=== PATIENT | female | born 1985 | race Hispanic/Latino ===

== ENCOUNTER 2016-11-24 06:59 | Inpatient (IN) | payer OTHER ==
[2016-11-24] MEDS: Lactated Ringer's 1,000 ML IV SCH ×4 (08:25→17:30)
[2016-11-24 08:46] VITALS: PULSE 80; RESP 18; O2SAT 100
[2016-11-24] MEDS ORDERED: Lidocaine 1% Inj (20ml) ONE (09:08)
[2016-11-24 09:19] LABS: BASO # 0.1 K/uL (0.0-0.2); BASO % 0.5 % (0.0-2.0); EOS # 0.1 K/uL (0.0-0.7); EOS % 0.7 % (0.0-4.0); HEMATOCRIT 37.1 % (34.0-47.0); LYMPH # 2.1 K/uL (1.0-4.3); LYMPH % 18.7 % (20.0-40.0); MEAN CELL VOLUME 86.4 fl (81.0-99.0); MEAN CORPUSCULAR HEMOGLOBIN 28.1 pg (27.0-31.0); MEAN CORPUSCULAR HGB CONC 32.5 g/dL (33.0-37.0); MEAN PLATELET VOLUME 10.5 fl (7.2-11.7); MONO # 0.8 K/uL (0.0-0.8); MONO % 6.8 % (0.0-10.0); NEUT # 8.3 K/uL (1.8-7.0); NEUT % 73.3 % (50.0-75.0); RED CELL DISTRIBUTION WIDTH 13.8 % (11.5-14.5); WHITE BLOOD COUNT 11.3 K/uL (4.8-10.8)
[2016-11-24] MEDS ORDERED: Fentanyl/Bupivacaine HCl 250 ML EPI ONE (10:04)
[2016-11-24] MEDS ORDERED: Oxytocin 30 units/LR 500ML 500 ML IV SCH (10:30)
[2016-11-24] MEDS ORDERED: Oxytocin 30 units/LR 500ML 500 ML IV ONE (22:36)
[2016-11-24] MEDS ORDERED: Oxycodone/Acetaminophen 5/325 mg Tab PO PRN (23:01)
--- NOTE | 2016-11-24 23:24 | OBDS ---
MATERNAL INFORMATION Provider Comments: Delivered a live baby girl at 10:24 PM via vacuum extraction. Indication for vacu um was maternal exhaustion position of the baby was CAROLINE and +3 station. Prior to application of the v acuum informed consent was obtained we discussed risks benefits and alternatives to the procedure and the fascia was given the opportunity ask questions. The vacuum was applied using maternal expulsive forces the infant was delivered. The nose and mouth were suctioned with DeLee suction trap the infant was placed on the maternal chest the cord was clamped and cut. 3 vessels were noted 3 vessels were n oted. The placenta was delivered manually a midline episiotomy was repaired with 2-0 repeat the mothe r tolerated the procedure well the infant went to the nursery with Apgars of 9 and 9 weighing 8 pound s 8.3 ounces. PH was in attendance due to operative vaginal delivery LABOR SUMMARY EDC: 11/19/2016 00:00 No. Babies in Womb: 1 Attempted: No Labor Anesthesia: Epidural LABOR INFORMATION Reason for Induction: Not Applicable Onset of Labor: 11/24/2016 05:30 Complete Dilatation: 11/24/2016 15:30 Oxytocin: Augmentation Group B Beta Strep: Negative Antibiotics # of Doses: n/a Antibiotics Time of Last Dose: n/a Steroids Given: None Reason Steroids Not Administered: Not Applicable MEMBRANES Membranes Rupture Method: Artificial Rupture of Membranes: 11/24/2016 09:52 Amniotic Fluid Color: Clear Amniotic Fluid Amount: Moderate Amniotic Fluid Odor: Normal STAGES OF LABOR Stage 1 hrs: 10 Stage 1 min: 0 VAGINAL DELIVERY Episiotomy: Median Laceration Extension: Second Degree Laceration Type: Perineal Laceration Repair: Yes Laceration Repair Note: 2.0 rapide BABY A INFORMATION Born in Route : No : N/A INFORMATION BABY A Gestational Age at Delivery: 40.5 Gestational Status: Post-term IDENTIFICATION/MEDS BABY A ID Band Number: [id number]
[2016-11-25] MEDS ORDERED: AMPicillin 1 GM in Sodium Chloride 0.9% 100 ML IVPB SCH ×2 (01:00→02:00)
[2016-11-25] MEDS ORDERED: Gentamicin 80mg/50ml NS 50 ML IVPB SCH (01:00)
[2016-11-25 01:16] VITALS: BP 108/65; TEMP 98.1
[2016-11-25] MEDS: Lactated Ringer's 1,000 ML IV SCH ×2 (01:17→09:30)
[2016-11-25] MEDS: Oxycodone/Acetaminophen 5/325 mg Tab PO PRN ×4 (04:57→21:06)
--- NOTE | 2016-11-25 07:59 | OBPPN ---
Datetime: 11/25/2016 07:55 PP Pain Prov: Within normal limits PP Abdomen/Uterus Prov: Normal PP Lochia Prov: Normal PP Extremities Prov: Normal PP Progress Prov: Normal PP Impression Prov: Normal progression PP Plan Prov: Continue present management PP Progress Note Prov: PPD 1 s/p VAVD, breast feeding Continue current management Vital Signs Provider PP: Reviewed
[2016-11-25 08:01] LABS: HEMATOCRIT 30.1 % (34.0-47.0); MEAN CELL VOLUME 86.7 fl (81.0-99.0); MEAN CORPUSCULAR HEMOGLOBIN 28.4 pg (27.0-31.0); MEAN CORPUSCULAR HGB CONC 32.7 g/dL (33.0-37.0); RED CELL DISTRIBUTION WIDTH 13.9 % (11.5-14.5); WHITE BLOOD COUNT 20.4 K/uL (4.8-10.8)
--- NOTE | 2016-11-25 11:06 | OBHP ---
Datetime: 11/24/2016 07:50 IP Adm Impression: Term, intrauterine ; No Active Labor IP Adm Impression Other: Latent phase of labor IP Admit Plan: Admit to unit; Initiate labor protocol Admit Comment, IP Provider: IUP at 40+w c/o ctx last night which increased intensity...while in L_D she felt leaking. No VB. +FM PNC: CP Dr Madrid PMH: denies PSH: denies NKA PSoH denies smoking, ETOH, drugs chart rev'd and updated/PNC Dr Madrid A: IUP at 40w early labor SROM P: Admit to L_D Labs observe labor progress Condition, labor,pain management, augmentation methods, delilvry and discussed with pt Abdomen - PN: Normal Back - PN: Normal Lungs - PN: Normal Heart - PN: Normal Thyroid - PN: Normal Neurologic - PN: Normal HEENT - PN: Normal General - PN: Normal FHR - Baseline A Provider: 120 Amniotic Fluid Color, Provider: Clear Membranes, Provider: Ruptured Contraction Comments Provider: occ Comments, ACOG Physical Exam: General - no fatigue HEENT: No [place]; no visual disturbance CV: no CP; no palpitations RESP: No Cough; no SOB GI: No N/V/D : No F/U/D MS: no joint pain Pool Provider: Negative Ferning Provider: Positive IP Hx Assessment: The History has been Reviewed and is Current EGA AdmitDate IP: 40.5 Vital Signs Provider: Reviewed; Within Normal Limits IP Chief Complaint: Uterine contractions; Suspected ruptured membranes NICHD Variability Prov Fetus A: Moderate 6-25bpm NICHD Accel Fetus A IP Provider: 15X15 FHR Category Provider Fetus A: Category I NICHD Decel Fetus A IP Provider: None Dilatation, Provider: 2-3 Effacement, Provider: 50 Station, Provider: -2
[2016-11-25] MEDS: Benzocaine/Menthol SPRAY TOP PRN (16:28)
[2016-11-26] MEDS: Benzocaine/Menthol SPRAY TOP PRN (09:27)
--- NOTE | 2016-11-26 10:55 | OBDCSUM ---
Datetime: 11/26/2016 10:53 Discharged to, Provider: Home Follow up at, Provider: [facility] Disch Instr Activity: Normal activity Disch Instr Diet: Regular Discharge Instructions, Provider: Routine instructions given Discharge Diagnosis, Provider: Term Delivered Follow up in weeks, Provider: 6w Disch Referrals: None Contraception discussed, Prov: Yes Disch Activity Restrictions: No sexual activity; Nothing in vagina - [place], tampons, douche
[2016-11-26] MEDS ORDERED: Hydrocortisone-Pramoxine 1%-1% Foam(10 gm) TOP PRN (11:43)
== END 2016-11-26 15:36 | disposition home or self-care (01) | DRG 775 ==
LOC: H.EROB2 06:59 → H.L&D 08:15 → H.OB/GYN 11-25 01:10
PROVIDERS: ADMIT Obstetrics & Gynecology Gynecology; ATTEND Obstetrics & Gynecology Gynecology
PROC: 10D07Z6 Extraction of Products of Conception, Vacuum, Via Natural or Artificial Opening (ICD-10-PCS; principal; 2016-11-24)
PROC: 0KQM0ZZ Repair Perineum Muscle, Open Approach (ICD-10-PCS; 2016-11-24)
PROC: 0W8NXZZ Division of Female Perineum, External Approach (ICD-10-PCS; 2016-11-24)
PROC: 4A1HXCZ Monitoring of Products of Conception, Cardiac Rate, External Approach (ICD-10-PCS; 2016-11-24)
PROC: 10907ZC Drainage of Amniotic Fluid, Therapeutic from Products of Conception, Via Natural or Artificial Opening (ICD-10-PCS; 2016-11-24)
DX: O48.0 Post-term pregnancy (principal); O70.1 Second degree perineal laceration during delivery; Z37.0 Single live birth; Z3A.40 40 weeks gestation of pregnancy

== ENCOUNTER 2017-12-04 23:57 | Day surgery (SDC) | payer OTHER ==
[2017-12-05] MEDS ORDERED: Morphine 4 MG/ML VIAL IVP STA (00:40)
[2017-12-05] MEDS ORDERED: Morphine 4 MG/ML VIAL ONE ×2 (00:49→15:57)
[2017-12-05 01:30] LABS: BASO # 0.1 K/uL (0.0-0.2); BASO % 0.7 % (0.0-2.0); EOS # 0.2 K/uL (0.0-0.7); EOS % 1.3 % (0.0-4.0); HEMOGLOBIN 14.3 g/dL (12.0-16.0); LYMPH % 21.2 % (20.0-40.0); MEAN CELL VOLUME 85.9 fl (81.0-99.0); MEAN CORPUSCULAR HEMOGLOBIN 28.7 pg (27.0-31.0); MEAN CORPUSCULAR HGB CONC 33.4 g/dL (33.0-37.0); MEAN PLATELET VOLUME 10.1 fl (7.2-11.7); MONO # 0.7 K/uL (0.0-0.8); MONO % 5.1 % (0.0-10.0); NEUT # 10.2 K/uL (1.8-7.0); NEUT % 71.7 % (50.0-75.0); RBC 4.99 Mil/uL (3.80-5.20); RED CELL DISTRIBUTION WIDTH 13.5 % (11.5-14.5); WHITE BLOOD COUNT 14.2 K/uL (4.8-10.8)
[2017-12-05 01:39] LABS: ALB/GLOB RATIO 1.4 (1.0-2.1); ALBUMIN 4.4 g/dL (3.5-5.0); ALT/SGPT 67 U/L (9-52); AST/SGOT 105 U/L (14-36); BLOOD UREA NITROGEN 21 mg/dl (7-17); CALCIUM 9.9 mg/dL (8.4-10.2); GFR AFRICAN-AMERICAN > 60; GFR NON-AFRICAN AMERICAN > 60; LIPASE 103 U/L (23-300)
--- NOTE | 2017-12-05 02:17 | ED PDOC ---
HPI: Abdomen Time Seen by Provider: 12/05/17 00:11 Chief Complaint (Nursing): Abdominal Pain Chief Complaint (Provider): Abdominal Pain History Per: Patient History/Exam Limitations: no limitations Onset/Duration Of Symptoms: Mins (x30 minutes HEAD GROWER) Location Of Pain/Discomfort: Epigastric Associated Symptoms: denies: Fever, Nausea, Vomiting, Diarrhea, Urinary Symptoms Additional Complaint(s): Patient complains of sudden onset epigastric abdominal pain x30 minutes HEAD GROWER described as contraction-like and has no past medical history. Reports pain radiates to the bilateral upper quadrants of the abdomen. Denies experiencing this pain before. Otherwise: (-) vomiting, (-) diarrhea, (-) nausea, (-) fever, (-) melena, (-) hematochezia, (-) urinary symptoms. Has no history of prior abdominal surgery. Patient notes upon ED arrival, pain has improved but is still present. PCP: None Past Medical History Reviewed: Historical Data, Nursing Documentation, Vital Signs Vital Signs: Last Vital Signs Temp 97.5 F L 12/05/17 00:02 Pulse 106 H 12/05/17 00:02 Resp 18 12/05/17 00:02 BP 136/82 12/05/17 00:51 Pulse Ox 100 12/05/17 04:42 - Medical History PMH: No Chronic Diseases - Surgical History Surgical History: No Surg Hx - Family History Family History: States: No Known Family Hx - Living Arrangements Living Arrangements: With Family - Allergies Allergies/Adverse Reactions: Allergies Allergy/AdvReac Type Severity Reaction Status Date / Time No Known Allergies Allergy Verified 11/24/16 07:40 Review of Systems ROS Statement: Except As Marked, All Systems Reviewed And Found Negative Constitutional: Negative for: Fever Gastrointestinal: Positive for: Abdominal Pain. Negative for: Nausea, Vomiting , Diarrhea Genitourinary Female: Negative for: Dysuria, Frequency, Incontinence, Hematuria Physical Exam - Reviewed Nursing Documentation Reviewed: Yes Vital Signs Reviewed: Yes - Physical Exam Comments: GENERAL APPEARANCE: Patient is awake, alert, oriented x 3, in moderate painful distress SKIN: Warm, dry; (-) cyanosis. EYES: (-) conjunctival pallor, (-) scleral icterus. ENMT: Mucous membranes moist. NECK: (-) tenderness, (-) stiffness, (-) lymphadenopathy. CHEST AND RESPIRATORY: (-) rales, (-) rhonchi, (-) wheezes; breath sounds equal bilaterally. HEART AND CARDIOVASCULAR: (-) irregularity; (-) murmur, (-) gallop. ABDOMEN AND GI: (-) distention. Bowel sounds active; tenderness in epigastrum and RUQ. (-) guarding, (-) rebound, (-) palpable masses, (-) CVA tenderness. (+ ) Molina's sign EXTREMITIES: (-) deformity, (-) edema, (+) distal pulses. NEURO AND PSYCH: Mental status as above; (-) focal findings. - Laboratory Results Result Diagrams: 12/05/17 01:20 12/05/17 01:20 - ECG O2 Sat by Pulse Oximetry: 100 (RA) Pulse Ox Interpretation: Normal Medical Decision Making Medical Decision Makin Initial orders: * Labs * Lipase * UPreg * Morphine 4mg IVP * Pepcid 20mg IVP * Zofran 4mg PO * UA * US ABD LIMITED US abdomen : FINDINGS: Liver: Normal. No mass. No intrahepatic bile duct dilation. Gallbladder: Cholelithiasis is present. A positive sonographic Molina sign is reported. Common bile duct: Unremarkable as visualized. No stones. No dilation. Pancreas: Unremarkable as visualized. Right kidney: The RIGHT kidney measures 10.7 x 6.1 x 3.8 cm. No stones. No hydronephrosis. Aorta: Visualized aorta is unremarkable. Inferior vena cava: The visualized IVC is unremarkable. IMPRESSION: Acute cholecystitis as above. Dictated and Authenticated by: Raul Hussein MD 12/05/2017 1:18 AM Eastern Time ([place] & [place]) Labs reviewed : wbc 14.2, ast 105, alt 67, t bili 0.8, lipase 103 0240 On re-evaluation, patient reports improvement of pain. On exam, patient remains AAOx3, in no acute distress. Abdomen soft, +mild RUQ and epigastric tenderness, no guarding, no rebound. Diagnostic results d/w the patient in great detail. Diagnosis of acute cholecystitis d/w the patient. VBG, blood cx and zosyn IV ordered. Case d/w operating room surgical technologist, Dr. Tay Bartholomew, agree with plan for inpatient admission. Request admission under the hospitalist. Dr. Carmona was notified by operating room surgical technologist regarding admission. Based on history, exam and diagnostic results, plan will be for inpatient admission. Patient states she fully agrees with and understands further plan of care. I have given the patient opportunity to ask any additional questions. Scribe Attestation: Documented by Yanelis Godinez acting as a scribe for Leyla Castle PA-C. Scribe Attestation: All medical record entries made by the Scribe were at my direction and personally dictated by me. I have reviewed the chart and agree that the record accurately reflects my personal performance of the history, physical exam, medical decision making, and the department course for this patient. I have also personally directed, reviewed, and agree with the discharge instructions and disposition. Disposition - Clinical Impression Clinical Impression: Abdominal pain, Acute cholecystitis - Patient ED Disposition Is Patient to be Admitted: Yes Counseled Patient/Family Regarding: Studies Performed, Diagnosis - Disposition Disposition Time: 02:15 Condition: STABLE Forms: [facility] (Romanian)
[2017-12-05] MEDS ORDERED: Piperacillin/Tazobact 3.375 GM in Sodium Chloride 0.9% 100 ML IVPB STA (02:40)
[2017-12-05] MEDS ORDERED: Piperacillin/Tazobact 3.375 gm Inj IVPB ONE (03:10)
[2017-12-05 03:19] LABS: VENOUS BLOOD GAS BASE EXCESS -2.4 mmol/L (0.0-2.0); VENOUS BLOOD GAS PCO2 42 mmHg (40-60); VENOUS BLOOD GAS PO2 69 mm/Hg (30-55); VENOUS BLOOD PH 7.35 (7.32-7.43)
[2017-12-05 03:44] LABS: SQUAMOUS EPITHIAL 1 /hpf (0-5); URINE BILIRUBIN NEGATIVE (NEGATIVE); URINE BLOOD NEGATIVE (NEGATIVE); URINE CLARITY CLEAR (Clear); URINE COLOR YELLOW (YELLOW); URINE GLUCOSE (UA) NEG (Normal); URINE LEUKOCYTE ESTERASE SMALL Leu/uL (Negative); URINE PROTEIN NEGATIVE (NEGATIVE); URINE UROBILINOGEN 0.2-1.0 mg/dL (0.2-1.0)
--- NOTE | 2017-12-05 04:26 | CP.PCM.HP ---
History of Present Illness - History of Present Illness History of Present Illness: PMD: none Chief Complaint: Abdominal Pain The patient was seen and examined in the ED HPI: 32 years old female with no significant medical hx comes with 30mins of sudden unset of a sharp, contraction - epigastric pain which was continuous and radiating across the upper abdomen, not relieved with her home medications. No fever, nausea, vomits, diarrhea, SOB nor chest pains. No dysuria nor urinary frequency. PMH: Denies PSH: Denies SH: No illegal drug use; No Alcohol; Never Smoked; live with family FH: State: No known family hjx Allergies: NKDA Medication: No Medication use Present on Admission - Present on Admission Any Indicators Present on Admission: No History of DVT/PE: No History of Uncontrolled Diabetes: No Urinary Catheter: No Decubitus Ulcer Present: No Review of Systems - Constitutional Constitutional: Headache. absent: Anorexia, Chills, Fever - EENT Eyes: Requires Corrective Lenses. absent: Diplopia, Floaters, Sees Flashes Ears: absent: Decreased Hearing, Ear Discharge, Ear Pain, Tinnitus Nose/Mouth/Throat: absent: Epistaxis, Nasal Congestion, Nasal Discharge, Sinus Pain, Sinus Pressure - Cardiovascular Cardiovascular: absent: Chest Pain, Diaphoresis, Dyspnea, Edema - Respiratory Respiratory: absent: Cough, Dyspnea, Wheezing, Stridor - Gastrointestinal Gastrointestinal: Abdominal Pain. absent: Constipation, Diarrhea, Dysphagia, Nausea, Vomiting - Genitourinary Genitourinary: absent: Dysuria, Flank Pain, Hematuria, Voiding Freq/Small Amts - Musculoskeletal Musculoskeletal: absent: Arthralgias, Muscle Weakness, Neck Pain - Integumentary Integumentary: absent: Pruritus, Rash, Skin Ulcer, Sores, Striae, Swelling - Neurological Neurological: absent: Confusion, Dizziness, Focal Weakness, Weakness - Psychiatric Psychiatric: absent: Anxiety, Depression, Panic Attacks - Endocrine Endocrine: absent: Palpitations, Polydipsia, Polyphagia, Polyuria - Hematologic/Lymphatic Hematologic: absent: Easy Bleeding, Easy Bruising Past Patient History - Past Medical History & Family History Past Medical History?: No - Past Social History Smoking Status: Never Smoked Chewing Tobacco Use: No Cigar Use: No Alcohol: None Drugs: Denies Home Situation {Lives}: With Family - CARDIAC Hx Cardiac Disorders: No - PULMONARY Hx Respiratory Disorders: No - NEUROLOGICAL Hx Neurological Disorder: No - HEENT Hx HEENT Problems: No - RENAL Hx Chronic Kidney Disease: No - ENDOCRINE/METABOLIC Hx Endocrine Disorders: No - HEMATOLOGICAL/ONCOLOGICAL Hx Blood Disorders: No - INTEGUMENTARY Hx Dermatological Problems: No - MUSCULOSKELETAL/RHEUMATOLOGICAL Hx Musculoskeletal Disorders: No - GASTROINTESTINAL Hx Gastrointestinal Disorders: No - GENITOURINARY/GYNECOLOGICAL Hx Genitourinary Disorders: No - PSYCHIATRIC Hx Psychophysiologic Disorder: No Hx Substance Use: No - SURGICAL HISTORY Hx Surgeries: No - ANESTHESIA Hx Anesthesia: No Meds Allergies/Adverse Reactions: Allergies Allergy/AdvReac Type Severity Reaction Status Date / Time No Known Allergies Allergy Verified 11/24/16 07:40 Physical Exam - Constitutional Appears: No Acute Distress - Head Exam Head Exam: ATRAUMATIC, NORMAL INSPECTION, NORMOCEPHALIC - Eye Exam Eye Exam: EOMI, Normal appearance Pupil Exam: NORMAL ACCOMODATION, PERRL - ENT Exam ENT Exam: Mucous Membranes Moist, Normal Exam, Normal External Ear Exam - Neck Exam Neck exam: Positive for: Full Rom, Normal Inspection. Negative for: Lymphadenopathy, Tenderness - Respiratory Exam Respiratory Exam: Clear to Auscultation Bilateral. absent: Rales, Rhonchi, Wheezes - Cardiovascular Exam Cardiovascular Exam: REGULAR RHYTHM, RRR, +S1, +S2. absent: Gallop, JVD - GI/Abdominal Exam Additional comments: Soft, +ve bowel sounds, moderate tenderness at the RUQ and Epigastrium on palpation, No rebound tenderness, no guarding - Rectal Exam Rectal Exam: Deferred - Extremities Exam Extremities exam: Positive for: full ROM, normal inspection. Negative for: calf tenderness, joint swelling, pedal edema - Back Exam Back exam: NORMAL INSPECTION. absent: CVA tenderness (L), CVA tenderness (R) - Neurological Exam Neurological exam: Alert, CN II-XII Intact, Oriented x3, Reflexes Normal - Psychiatric Exam Psychiatric exam: Normal Affect, Normal Mood - Skin Skin Exam: Dry, Intact, Normal Color, Warm Results - Vital Signs Recent Vital Signs: Last Vital Signs Temp 97.5 F L 12/05/17 00:02 Pulse 106 H 12/05/17 00:02 Resp 18 12/05/17 00:02 BP 136/82 12/05/17 00:51 Pulse Ox 100 12/05/17 03:45 - Labs Result Diagrams: 12/05/17 01:20 12/05/17 01:20 Labs: Laboratory Results - last 24 hr 12/05/17 12/05/17 12/05/17 01:20 01:20 03:15 WBC 14.2 H RBC 4.99 Hgb 14.3 D Hct 42.9 MCV 85.9 MCH 28.7 MCHC 33.4 RDW 13.5 Plt Count 205 MPV 10.1 Neut % (Auto) 71.7 Lymph % (Auto) 21.2 [place] % (Auto) 5.1 Eos % (Auto) 1.3 Baso % (Auto) 0.7 Neut # (Auto) 10.2 H Lymph # (Auto) 3.0 [place] # (Auto) 0.7 Eos # (Auto) 0.2 Baso # (Auto) 0.1 pO2 69 H VBG pH 7.35 VBG pCO2 42 VBG HCO3 22.9 VBG Total CO2 24.5 VBG O2 Sat (Calc) 95.9 H VBG Base Excess -2.4 L VBG Potassium 3.6 Glucose 129 H Lactate 1.1 FiO2 21.0 Sodium 141 136.0 Potassium 3.7 Chloride 101 104.0 Carbon Dioxide 26 Anion Gap 18 BUN 21 H Creatinine 0.9 Est GFR ( Amer) > 60 Est GFR (Non-Af Amer) > 60 Random Glucose 106 H Calcium 9.9 Total Bilirubin 0.8 AST 105 H ALT 67 H Alkaline Phosphatase 76 Total Protein 7.4 Albumin 4.4 Globulin 3.0 Albumin/Globulin Ratio 1.4 Lipase 103 Venous Blood Potassium 3.6 Urine Color Urine Clarity Urine pH Ur Specific [place] Urine Protein Urine Glucose (UA) Urine Ketones Urine Blood Urine Nitrate Urine Bilirubin Urine Urobilinogen Ur Leukocyte Esterase Urine RBC (Auto) Urine Microscopic WBC Ur Squamous Epith Cells 12/05/17 03:20 WBC RBC Hgb Hct MCV MCH MCHC RDW Plt Count MPV Neut % (Auto) Lymph % (Auto) [place] % (Auto) Eos % (Auto) Baso % (Auto) Neut # (Auto) Lymph # (Auto) [place] # (Auto) Eos # (Auto) Baso # (Auto) pO2 VBG pH VBG pCO2 VBG HCO3 VBG Total CO2 VBG O2 Sat (Calc) VBG Base Excess VBG Potassium Glucose Lactate FiO2 Sodium Potassium Chloride Carbon Dioxide Anion Gap BUN Creatinine Est GFR ( Amer) Est GFR (Non-Af Amer) Random Glucose Calcium Total Bilirubin AST ALT Alkaline Phosphatase Total Protein Albumin Globulin Albumin/Globulin Ratio Lipase Venous Blood Potassium Urine Color Yellow Urine Clarity Clear Urine pH 7.0 Ur Specific [place] 1.015 Urine Protein Negative Urine Glucose (UA) Neg Urine Ketones Negative Urine Blood Negative Urine Nitrate Negative Urine Bilirubin Negative Urine Urobilinogen 0.2-1.0 Ur Leukocyte Esterase Small Urine RBC (Auto) 3 Urine Microscopic WBC 6 H Ur Squamous Epith Cells 1 - Imaging and Cardiology US - abdomen Status: Report reviewed by me Additional comment: EXAM: US Abdomen Limited, Right Upper Quadrant EXAM DATE/TIME: Exam ordered 12/05/2017 12:40 AM C FINDINGS: Liver: Normal. No mass. No intrahepatic bile duct dilation. Gallbladder: Cholelithiasis is present. A positive sonographic Molina sign is reported. Common bile duct: Unremarkable as visualized. No stones. No dilation. Pancreas: Unremarkable as visualized. Right kidney: The RIGHT kidney measures 10.7 x 6.1 x 3.8 cm. No stones. No hydronephrosis. Aorta: Visualized aorta is unremarkable. Inferior vena cava: The visualized IVC is unremarkable. IMPRESSION: Acute cholecystitis as above. Assessment & Plan - Assessment and Plan (Free Text) Assessment: #. Acute Cholecystitis with Cholelithiasis #. leukocytosis #. Dehydration Plan: 32 years old female with no significant medical hx comes with 30mins of sudden unset of a sharp, contraction - epigastric pain which was continuous and radiating across the upper abdomen, not relieved with her home medications. No fever, nausea, vomits, diarrhea, SOB nor chest pains. No dysuria nor urinary frequency. #. Acute Cholecystitis with Cholelithiasis - consult Surgery Dr Carmona - NPO - IV Fluids - Zosyn - Pain medication #. leukocytosis caused bythe Cholecystitis - Follow CBC #. Dehydration - IV Fluid - follow Renal labs #. DVT prophylaxis with SCD #. Code Status: Full - Date & Time Date: 12/05/17 Time: 04:25
--- NOTE | 2017-12-05 05:23 | CP.PCM.CON ---
History of Present Illness - History of Present Illness History of Present Illness: SURGERY NOTE FOR DR. LEBRON 32F presents with abdominal pain that started last night. Patient states it started after eating fatty food for the holidays. She states the pain is located in the RUQ/Epigastric region and does not radiate. She has never had this pain before. She denies association with nausea, vomiting, fevers, or chills. Denies change in bowel function. PMH: denies PSH: Tonsillectomy Social: denies tobacco, alcohol, illicit drugs Allergies: NKDA Past Patient History - Past Social History Smoking Status: Never Smoked - PSYCHIATRIC Hx Substance Use: No - SURGICAL HISTORY Hx Surgeries: No - ANESTHESIA Hx Anesthesia: No Meds Allergies/Adverse Reactions: Allergies Allergy/AdvReac Type Severity Reaction Status Date / Time No Known Allergies Allergy Verified 11/24/16 07:40 Physical Exam - Constitutional Appears: Well, Non-toxic, No Acute Distress - ENT Exam ENT Exam: Mucous Membranes Moist - Respiratory Exam Respiratory Exam: Clear to Auscultation Bilateral, NORMAL BREATHING PATTERN - Cardiovascular Exam Cardiovascular Exam: REGULAR RHYTHM, +S1, +S2 - GI/Abdominal Exam GI & Abdominal Exam: Soft, Tenderness (Epigastric and RUQ tenderness). absent: Distended, Firm, Guarding, Rebound, Rigid - Extremities Exam Extremities exam: Negative for: pedal edema, tenderness - Neurological Exam Neurological exam: Alert, Oriented x3 - Psychiatric Exam Psychiatric exam: Normal Affect, Normal Mood - Skin Skin Exam: Dry, Intact, Normal Color, Warm Results - Vital Signs Recent Vital Signs: Last Vital Signs Temp 97.5 F L 12/05/17 00:02 Pulse 106 H 12/05/17 00:02 Resp 18 12/05/17 00:02 BP 136/82 12/05/17 00:51 Pulse Ox 100 12/05/17 04:46 - Labs Result Diagrams: 12/05/17 01:20 12/05/17 01:20 Labs: Laboratory Results - last 24 hr 12/05/17 12/05/17 12/05/17 01:20 01:20 03:15 WBC 14.2 H RBC 4.99 Hgb 14.3 D Hct 42.9 MCV 85.9 MCH 28.7 MCHC 33.4 RDW 13.5 Plt Count 205 MPV 10.1 Neut % (Auto) 71.7 Lymph % (Auto) 21.2 [place] % (Auto) 5.1 Eos % (Auto) 1.3 Baso % (Auto) 0.7 Neut # (Auto) 10.2 H Lymph # (Auto) 3.0 [place] # (Auto) 0.7 Eos # (Auto) 0.2 Baso # (Auto) 0.1 pO2 69 H VBG pH 7.35 VBG pCO2 42 VBG HCO3 22.9 VBG Total CO2 24.5 VBG O2 Sat (Calc) 95.9 H VBG Base Excess -2.4 L VBG Potassium 3.6 Glucose 129 H Lactate 1.1 FiO2 21.0 Sodium 141 136.0 Potassium 3.7 Chloride 101 104.0 Carbon Dioxide 26 Anion Gap 18 BUN 21 H Creatinine 0.9 Est GFR ( Amer) > 60 Est GFR (Non-Af Amer) > 60 Random Glucose 106 H Calcium 9.9 Total Bilirubin 0.8 AST 105 H ALT 67 H Alkaline Phosphatase 76 Total Protein 7.4 Albumin 4.4 Globulin 3.0 Albumin/Globulin Ratio 1.4 Lipase 103 Venous Blood Potassium 3.6 Urine Color Urine Clarity Urine pH Ur Specific [place] Urine Protein Urine Glucose (UA) Urine Ketones Urine Blood Urine Nitrate Urine Bilirubin Urine Urobilinogen Ur Leukocyte Esterase Urine RBC (Auto) Urine Microscopic WBC Ur Squamous Epith Cells 12/05/17 03:20 WBC RBC Hgb Hct MCV MCH MCHC RDW Plt Count MPV Neut % (Auto) Lymph % (Auto) [place] % (Auto) Eos % (Auto) Baso % (Auto) Neut # (Auto) Lymph # (Auto) [place] # (Auto) Eos # (Auto) Baso # (Auto) pO2 VBG pH VBG pCO2 VBG HCO3 VBG Total CO2 VBG O2 Sat (Calc) VBG Base Excess VBG Potassium Glucose Lactate FiO2 Sodium Potassium Chloride Carbon Dioxide Anion Gap BUN Creatinine Est GFR ( Amer) Est GFR (Non-Af Amer) Random Glucose Calcium Total Bilirubin AST ALT Alkaline Phosphatase Total Protein Albumin Globulin Albumin/Globulin Ratio Lipase Venous Blood Potassium Urine Color Yellow Urine Clarity Clear Urine pH 7.0 Ur Specific [place] 1.015 Urine Protein Negative Urine Glucose (UA) Neg Urine Ketones Negative Urine Blood Negative Urine Nitrate Negative Urine Bilirubin Negative Urine Urobilinogen 0.2-1.0 Ur Leukocyte Esterase Small Urine RBC (Auto) 3 Urine Microscopic WBC 6 H Ur Squamous Epith Cells 1 Assessment & Plan - Assessment and Plan (Free Text) Assessment: 32F with cholecystitis Plan: - NPO, IVF - Pain control - Antibiotics - AM labs Further recs discuss with Dr. Mathew Bartholomew, PGY2
[2017-12-05 06:20] LABS: PARTIAL THROMBOPLASTIN TIME 31.3 Seconds (25.6-37.1); PROTHROMBIN TIME 11.6 Seconds (9.8-13.1)
[2017-12-05] MEDS: Sodium Chloride 0.9% 1,000 ML IV SCH ×2 (07:32→22:16)
--- NOTE | 2017-12-05 07:45 | CP.PCM.PN ---
Subjective - Date & Time of Evaluation Date of Evaluation: 12/05/17 Time of Evaluation: 07:43 - Subjective Subjective: Patient seen and examined. No acute events over night. Patient still has feculent output from anterior abdominal wall. Objective - Vital Signs/Intake and Output Vital Signs (last 24 hours): Temp Pulse Resp BP Pulse Ox 97 F L 71 19 111/64 98 12/05/17 07:36 12/05/17 07:36 12/05/17 07:36 12/05/17 07:36 12/05/17 07:36 - Medications Medications: Current Medications Sodium Chloride (Sodium Chloride 0.9%) 1,000 mls @ 125 mls/hr IV .Q8H SELIN Stop: 12/06/17 05:26 Last Admin: 12/05/17 07:32 Dose: 125 mls/hr Piperacillin Sod/Tazobactam (Sod 3.375 gm/ Sodium Chloride) 100 mls @ 100 mls/ hr IVPB Q6 SELIN PRN Reason: Protocol Ketorolac Tromethamine (Toradol) 30 mg IVP Q6 PRN PRN Reason: Pain, severe (8-10) - Labs Labs: 12/05/17 01:20 12/05/17 01:20 PT 11.6 Seconds (9.8-13.1) 12/05/17 05:56 INR 1.0 (0.9-1.2) 12/05/17 05:56 APTT 31.3 Seconds (25.6-37.1) 12/05/17 05:56
[2017-12-05] MEDS: Piperacillin/Tazobact 3.375 GM in Sodium Chloride 0.9% 100 ML IVPB SCH ×3 (11:50→22:14)
[2017-12-05] MEDS ORDERED: Rocuronium 10 mg/ml (5 ml) ONE (11:54)
[2017-12-05] MEDS ORDERED: Phenylephrine 10 mg/ml Inj ONE (11:54)
[2017-12-05] MEDS ORDERED: Midazolam 2 MG/2 ML VIAL ONE (11:54)
[2017-12-05] MEDS ORDERED: Succinylcholine 200 mg/10 ml Inj IV ONE (11:54)
[2017-12-05] MEDS ORDERED: ePHEDrine 50 mg/ml Inj ONE (11:54)
[2017-12-05] MEDS ORDERED: Propofol 10 mg/ml Inj (20 ML) ONE (11:54)
--- NOTE | 2017-12-05 12:15 | US ---
HISTORY: RUQ pain COMPARISON: None. TECHNIQUE: Sonographic evaluation of the right upper quadrant of the abdomen. FINDINGS: LIVER: Measures 18.5 cm in length. Patent portal vein. Portal venous flow: Hepatopetal. Unremarkable echogenicity of the liver parenchyma. No mass. No intrahepatic bile duct dilatation. GALLBLADDER: Cholelithiasis. Positive sonographic Molina's sign presumptive evidence for acute cholecystitis. COMMON BILE DUCT: Measures 6.45 mm. No stones. No dilatation. PANCREAS: Unremarkable as visualized. No mass. No ductal dilatation. RIGHT KIDNEY: Measures 6.1 x 10.7 cm in length. Normal echogenicity. No calculus, mass, or hydronephrosis. AORTA: No aneurysmal dilatation. IVC: Unremarkable. OTHER FINDINGS: None . IMPRESSION: Cholelithiasis, positive sonographic Molina's sign presumptive evidence for acute cholecystitis. Concordant results (preliminary interpretation) provided by [employer]. Procedure Completed: 00:56 Preliminary ([facility]) Report: Dictated and Authenticated: 01:18 Final Interpretation: 12:13 December 05, 2017.
[2017-12-05] MEDS ORDERED: Bupivacaine 0.5% Inj(30mL) ONE (13:57)
[2017-12-05] MEDS ORDERED: Lidocaine Hydrochloride 1% 10 ML ONE (13:57)
[2017-12-05] MEDS ORDERED: Lactated Ringer's 1,000 ML IV ONE ×2 (14:02→15:00)
[2017-12-05] MEDS ORDERED: Lidocaine 1% (10 ml) Inj IV ONE (14:25)
[2017-12-05] MEDS ORDERED: Bupivacaine 0.5% 50 ML IJ ONE (14:25)
[2017-12-05] MEDS ORDERED: Esmolol 100 mg/10ml Inj IV ONE (14:25)
[2017-12-05] MEDS ORDERED: Neostigmine 1:1000 (1 mg/ml) Inj ONE (14:45)
[2017-12-05] MEDS ORDERED: Morphine 1 mg/ml preservative-free Inj(Duramorph) ONE (14:50)
[2017-12-05] MEDS ORDERED: Dexamethasone 4 mg/1 ml ONE (14:51)
--- NOTE | 2017-12-05 15:30 | PCM.SURG1 ---
Surgeon's Initial Post Op Note - Surgeon's Notes Surgeon: Dr. Carmona Manager Clinical Services: Bob PGY3, Sergio PGY2, Nicolle PGY1 Type of Anesthesia: General Endo Pre-Operative Diagnosis: Cholelithiasis, Cholecystitis Operative Findings: see operative report Post-Operative Diagnosis: Cholelithiasis, Cholecystitis Operation Performed: Laparoscopic Cholecystectomy Specimen/Specimens Removed: Gallbladder with gallstones Estimated Blood Loss: EBL {In ML}: 5 Blood Products Given: N/A Drains Used: No Drains Post-Op Condition: Good Date of Surgery/Procedure: 12/05/17 Time of Surgery/Procedure: 02:00
[2017-12-05] MEDS ORDERED: HYDROmorphone 0.5 mg/0.5 ml ISec IVP PRN (15:32)
[2017-12-05] MEDS ORDERED: Dexamethasone 4 mg/1 ml IVP PRN (15:43)
--- NOTE | 2017-12-05 15:47 | CP.PCM.PCO ---
Physician Communication Note - Physician Communication Note Physician Communication Note: Attempted to see patient but she was in OR
[2017-12-05] MEDS: Oxycodone/Acetaminophen 5/325 mg Tab PO PRN (18:29)
[2017-12-05] MEDS: Lactated Ringer's 1,000 ML IV SCH (21:01)
[2017-12-05 23:39] VITALS: RESP 20
[2017-12-06] MEDS: Lactated Ringer's 1,000 ML IV SCH (02:00)
[2017-12-06] MEDS: Piperacillin/Tazobact 3.375 GM in Sodium Chloride 0.9% 100 ML IVPB SCH ×2 (04:15→10:09)
[2017-12-06] MEDS: Oxycodone/Acetaminophen 5/325 mg Tab PO PRN (07:28)
--- NOTE | 2017-12-06 08:44 | CP.PCM.PN ---
Subjective - Date & Time of Evaluation Date of Evaluation: 12/06/17 Time of Evaluation: 06:45 - Subjective Subjective: Patient seen and examined. No acute events over night. Denies nausea/vomiting, abdominal pain. Tolerating diet. Review of vitals is normal. Objective - Vital Signs/Intake and Output Vital Signs (last 24 hours): Temp Pulse Resp BP Pulse Ox 98.2 F 73 20 119/76 96 12/06/17 08:17 12/06/17 08:17 12/06/17 08:17 12/06/17 08:17 12/06/17 08:17 - Medications Medications: Current Medications Hydromorphone HCl (Dilaudid) 0.5 mg IVP Q3 PRN PRN Reason: Pain, severe (8-10) Piperacillin Sod/Tazobactam (Sod 3.375 gm/ Sodium Chloride) 100 mls @ 100 mls/ hr IVPB Q6 SELIN PRN Reason: Protocol Last Admin: 12/06/17 04:15 Dose: 100 mls/hr Lactated Ringer's (Lactated Ringer's) 1,000 mls @ 100 mls/hr IV .Q10H [facility] Last Admin: 12/06/17 02:00 Dose: Not Given Oxycodone/Acetaminophen (Percocet 5/325 Mg Tab) 1 tab PO Q4 PRN PRN Reason: Pain, moderate (4-7) Stop: 12/08/17 15:33 Last Admin: 12/06/17 07:28 Dose: 1 tab - Labs Labs: 12/05/17 01:20 12/05/17 01:20 PT 11.6 Seconds (9.8-13.1) 12/05/17 05:56 INR 1.0 (0.9-1.2) 12/05/17 05:56 APTT 31.3 Seconds (25.6-37.1) 12/05/17 05:56 - Constitutional Appears: Non-toxic - Head Exam Head Exam: NORMOCEPHALIC - Eye Exam Eye Exam: EOMI, Normal appearance - ENT Exam ENT Exam: Mucous Membranes Moist - Respiratory Exam Respiratory Exam: NORMAL BREATHING PATTERN - Cardiovascular Exam Cardiovascular Exam: +S1, +S2 - GI/Abdominal Exam GI & Abdominal Exam: Soft. absent: Distended, Firm, Guarding, Rigid - Neurological Exam Neurological Exam: Alert, Awake, Oriented x3 - Psychiatric Exam Psychiatric exam: Normal Mood - Skin Skin Exam: Dry, Intact, Warm Assessment and Plan - Assessment and Plan (Free Text) Assessment: 32F with acute cholecystitis s/p laparoscopic cholecystectomy POD 1 Plan: -Patient clear for discharge from surgical standpoint -Regular diet -Encourage incentive spirometer use and ambulation -F/u with Dr. Carmona in 2 weeks -Further recs per Dr. Mathew Juárez PGY2
[2017-12-06 09:44] LABS: BASO % 0.4 % (0.0-2.0); EOS % 0.3 % (0.0-4.0); HEMOGLOBIN 13.1 g/dL (12.0-16.0); LYMPH # 2.4 K/uL (1.0-4.3); LYMPH % 21.3 % (20.0-40.0); MEAN CELL VOLUME 85.4 fl (81.0-99.0); MEAN CORPUSCULAR HEMOGLOBIN 28.2 pg (27.0-31.0); MEAN PLATELET VOLUME 10.1 fl (7.2-11.7); MONO # 0.6 K/uL (0.0-0.8); MONO % 5.2 % (0.0-10.0); NEUT # 8.4 K/uL (1.8-7.0); NEUT % 72.8 % (50.0-75.0); RBC 4.65 Mil/uL (3.80-5.20); RED CELL DISTRIBUTION WIDTH 13.7 % (11.5-14.5); WHITE BLOOD COUNT 11.5 K/uL (4.8-10.8)
[2017-12-06 09:50] LABS: BLOOD UREA NITROGEN 8 mg/dl (7-17); CALCIUM 9.2 mg/dL (8.4-10.2); GFR AFRICAN-AMERICAN > 60; GFR NON-AFRICAN AMERICAN > 60
[2017-12-06 11:03] VITALS: BP 109/68; PULSE 88; TEMP 98.5; O2SAT 95
--- NOTE | 2017-12-06 12:10 | CP.PCM.DIS ---
Provider - Provider Date of Admission: 12/05/17 04:37 Attending physician: Oleg Esparza Time Spent in preparation of Discharge (in minutes): 30 Hospital Course - Lab Results Lab Results: Micro Results 12/05/17 03:20 Urine,Clean Catch Urine Culture - Final No Growth (<1,000 CFU/ML) 12/05/17 03:20 Blood Blood Culture - Preliminary NO GROWTH AFTER 24 HOURS 12/05/17 02:55 Blood Blood Culture - Preliminary NO GROWTH AFTER 24 HOURS Most Recent Lab Values WBC 11.5 K/uL (4.8-10.8) H 12/06/17 09:05 RBC 4.65 Mil/uL (3.80-5.20) 12/06/17 09:05 Hgb 13.1 g/dL (12.0-16.0) 12/06/17 09:05 Hct 39.7 % (34.0-47.0) 12/06/17 09:05 MCV 85.4 fl (81.0-99.0) 12/06/17 09:05 MCH 28.2 pg (27.0-31.0) 12/06/17 09:05 MCHC 33.0 g/dL (33.0-37.0) 12/06/17 09:05 RDW 13.7 % (11.5-14.5) 12/06/17 09:05 Plt Count 206 K/uL (130-400) 12/06/17 09:05 MPV 10.1 fl (7.2-11.7) 12/06/17 09:05 Neut % (Auto) 72.8 % (50.0-75.0) 12/06/17 09:05 Lymph % (Auto) 21.3 % (20.0-40.0) 12/06/17 09:05 [place] % (Auto) 5.2 % (0.0-10.0) 12/06/17 09:05 Eos % (Auto) 0.3 % (0.0-4.0) 12/06/17 09:05 Baso % (Auto) 0.4 % (0.0-2.0) 12/06/17 09:05 Neut # (Auto) 8.4 K/uL (1.8-7.0) H 12/06/17 09:05 Lymph # (Auto) 2.4 K/uL (1.0-4.3) 12/06/17 09:05 [place] # (Auto) 0.6 K/uL (0.0-0.8) 12/06/17 09:05 Eos # (Auto) 0.0 K/uL (0.0-0.7) 12/06/17 09:05 Baso # (Auto) 0.0 K/uL (0.0-0.2) 12/06/17 09:05 PT 11.6 Seconds (9.8-13.1) 12/05/17 05:56 INR 1.0 (0.9-1.2) 12/05/17 05:56 APTT 31.3 Seconds (25.6-37.1) 12/05/17 05:56 pO2 69 mm/Hg (30-55) H 12/05/17 03:15 VBG pH 7.35 (7.32-7.43) 12/05/17 03:15 VBG pCO2 42 mmHg (40-60) 12/05/17 03:15 VBG HCO3 22.9 mmol/L 12/05/17 03:15 VBG Total CO2 24.5 mmol/L (22-28) 12/05/17 03:15 VBG O2 Sat (Calc) 95.9 % (40-65) H 12/05/17 03:15 VBG Base Excess -2.4 mmol/L (0.0-2.0) L 12/05/17 03:15 VBG Potassium 3.6 mmol/L (3.6-5.2) 12/05/17 03:15 Sodium 136.0 mmol/L (132-148) 12/05/17 03:15 Chloride 104.0 mmol/L (98-107) 12/05/17 03:15 Glucose 129 mg/dL (65-105) H 12/05/17 03:15 Lactate 1.1 mmol/L (0.7-2.1) 12/05/17 03:15 FiO2 21.0 % 12/05/17 03:15 Sodium 141 mmol/l (132-148) 12/06/17 09:05 Potassium 3.2 MMOL/L (3.6-5.0) L 12/06/17 09:05 Chloride 103 mmol/L (98-107) 12/06/17 09:05 Carbon Dioxide 24 mmol/L (22-30) 12/06/17 09:05 Anion Gap 17 (10-20) 12/06/17 09:05 BUN 8 mg/dl (7-17) 12/06/17 09:05 Creatinine 0.7 mg/dl (0.7-1.2) 12/06/17 09:05 Est GFR ( Amer) > 60 12/06/17 09:05 Est GFR (Non-Af Amer) > 60 12/06/17 09:05 Random Glucose 140 mg/dL (65-105) H 12/06/17 09:05 Calcium 9.2 mg/dL (8.4-10.2) 12/06/17 09:05 Total Bilirubin 0.8 mg/dl (0.2-1.3) 12/05/17 01:20 AST 105 U/L (14-36) H 12/05/17 01:20 ALT 67 U/L (9-52) H 12/05/17 01:20 Alkaline Phosphatase 76 U/L (38-126) 12/05/17 01:20 Total Protein 7.4 G/DL (6.3-8.2) 12/05/17 01:20 Albumin 4.4 g/dL (3.5-5.0) 12/05/17 01:20 Globulin 3.0 gm/dL (2.2-3.9) 12/05/17 01:20 Albumin/Globulin Ratio 1.4 (1.0-2.1) 12/05/17 01:20 Lipase 103 U/L (23-300) 12/05/17 01:20 Venous Blood Potassium 3.6 mmol/L (3.6-5.2) 12/05/17 03:15 Urine Color Yellow (YELLOW) 12/05/17 03:20 Urine Clarity Clear (Clear) 12/05/17 03:20 Urine pH 7.0 (5.0-8.0) 12/05/17 03:20 Ur Specific [place] 1.015 (1.003-1.030) 12/05/17 03:20 Urine Protein Negative mg/dL (NEGATIVE) 12/05/17 03:20 Urine Glucose (UA) Neg mg/dL (Normal) 12/05/17 03:20 Urine Ketones Negative mg/dL (NEGATIVE) 12/05/17 03:20 Urine Blood Negative (NEGATIVE) 12/05/17 03:20 Urine Nitrate Negative (NEGATIVE) 12/05/17 03:20 Urine Bilirubin Negative (NEGATIVE) 12/05/17 03:20 Urine Urobilinogen 0.2-1.0 mg/dL (0.2-1.0) 12/05/17 03:20 Ur Leukocyte Esterase Small [place]/uL (Negative) 12/05/17 03:20 Urine RBC (Auto) 3 /hpf (0-3) 12/05/17 03:20 Urine Microscopic WBC 6 /hpf (0-5) H 12/05/17 03:20 Ur Squamous Epith Cells 1 /hpf (0-5) 12/05/17 03:20 - Hospital Course Hospital Course: 32 years old female with no significant medical hx comes with 30mins of sudden unset of a sharp, contraction - epigastric pain which was continuous and radiating across the upper abdomen, not relieved with her home medications. No fever, nausea, vomits, diarrhea, SOB nor chest pains. No dysuria nor urinary frequency. #. Acute Cholecystitis with Cholelithiasis - consult Surgery Dr Gonzales s/p cholecystectomy stable for dc home with pain control and follow up with surgery tolerating PO - Zosyn - Pain medication #. leukocytosis caused by Cholecystitis - Follow CBC #. Dehydration - IV Fluid - follow Renal labs #. DVT prophylaxis with SCD #. Code Status: Full Discharge Exam - Head Exam Additional comments: GEN: awake, alert, cooperative HEENT: NCAT, PERRL, EOMI HEART: RRR, S1, S2 no MRG LUNG: CTAB, no WRR ABD: soft, nondistended, BSX4, no masses EXT: warm, well perfused SKIN: warm, dry NEURO: awake, alert PSYCH: normal mood and affect Discharge Plan - Discharge Medications Prescriptions: oxyCODONE/Acetaminophen [Percocet 5/325 mg Tab] 1 tab PO Q4 PRN #10 tab PRN Reason: Pain, Moderate (4-7) - Follow Up Plan Condition: STABLE Disposition: HOME/ ROUTINE Instructions: Cholecystectomy, Laparoscopic Surgery, Gallstones (DC), Cholecystitis (DC), Cholecystitis (GEN) Additional Instructions: follow up with dr gonzales 1 week May take shower Referrals: Sukhjinder Padilla MD [Medical Doctor] - Abraham Gonzales MD [Staff Provider] -
--- NOTE | 2017-12-06 12:25 | CP.PCM.CON ---
History of Present Illness - History of Present Illness History of Present Illness: This is a 32 yr old F presents with abdominal pain in setting of cholecystitis s /p lap cholecystectomy. She denies nausea, fever, vomiting. No s/s of choledocholithiasis Review of Systems - Review of Systems Review of Systems: 12 point ROS unremarkable except that in HPI Past Patient History - Past Medical History & Family History Past Medical History?: No - Past Social History Smoking Status: Never Smoked - CARDIAC Hx Cardiac Disorders: No - PULMONARY Hx Respiratory Disorders: No - NEUROLOGICAL Hx Neurological Disorder: No - HEENT Hx HEENT Problems: No - RENAL Hx Chronic Kidney Disease: No - ENDOCRINE/METABOLIC Hx Endocrine Disorders: No - HEMATOLOGICAL/ONCOLOGICAL Hx Blood Disorders: No - INTEGUMENTARY Hx Dermatological Problems: No - MUSCULOSKELETAL/RHEUMATOLOGICAL Hx Musculoskeletal Disorders: No Hx Falls: No - GASTROINTESTINAL Hx Gastrointestinal Disorders: No - GENITOURINARY/GYNECOLOGICAL Hx Genitourinary Disorders: No - PSYCHIATRIC Hx Psychophysiologic Disorder: No Hx Substance Use: No - SURGICAL HISTORY Hx Surgeries: No - ANESTHESIA Hx Anesthesia: No Meds Home Medications: Home Medication List Medication Instructions Recorded Confirmed Type oxyCODONE/Acetaminophen [Percocet 1 tab PO Q4 PRN #10 tab 12/06/17 Rx 5/325 mg Tab] Allergies/Adverse Reactions: Allergies Allergy/AdvReac Type Severity Reaction Status Date / Time No Known Allergies Allergy Verified 11/24/16 07:40 - Medications Medications: Current Medications Hydromorphone HCl (Dilaudid) 0.5 mg IVP Q3 PRN PRN Reason: Pain, severe (8-10) Piperacillin Sod/Tazobactam (Sod 3.375 gm/ Sodium Chloride) 100 mls @ 100 mls/ hr IVPB Q6 SELIN PRN Reason: Protocol Last Admin: 12/06/17 10:09 Dose: 100 mls/hr Lactated Ringer's (Lactated Ringer's) 1,000 mls @ 100 mls/hr IV .Q10H [facility] Last Admin: 12/06/17 02:00 Dose: Not Given Oxycodone/Acetaminophen (Percocet 5/325 Mg Tab) 1 tab PO Q4 PRN PRN Reason: Pain, moderate (4-7) Stop: 12/08/17 15:33 Last Admin: 12/06/17 07:28 Dose: 1 tab Physical Exam - Constitutional Appears: Well - Head Exam Head Exam: ATRAUMATIC, NORMAL INSPECTION, NORMOCEPHALIC - Eye Exam Eye Exam: EOMI, Normal appearance, PERRL - ENT Exam ENT Exam: Mucous Membranes Moist, Normal Exam - Respiratory Exam Respiratory Exam: Clear to Auscultation Bilateral, NORMAL BREATHING PATTERN - Cardiovascular Exam Cardiovascular Exam: REGULAR RHYTHM - GI/Abdominal Exam GI & Abdominal Exam: Bruit, Distended, Normal Bowel Sounds, Soft - Exam Exam: Circumcision, NORMAL INSPECTION - Extremities Exam Extremities exam: Positive for: normal inspection - Neurological Exam Neurological exam: Alert, CN II-XII Intact, Normal Gait, Oriented x3, Reflexes Normal - Psychiatric Exam Psychiatric exam: Normal Affect, Normal Mood - Skin Skin Exam: Dry, Intact, Normal Color, Warm Results - Vital Signs Recent Vital Signs: Last Vital Signs Temp 98.5 F 12/06/17 09:00 Pulse 88 12/06/17 09:00 Resp 20 12/06/17 09:00 BP 109/68 12/06/17 09:00 Pulse Ox 95 12/06/17 09:00 - Labs Result Diagrams: 12/06/17 09:05 12/06/17 09:05 Labs: Laboratory Results - last 24 hr 12/06/17 12/06/17 09:05 09:05 WBC 11.5 H RBC 4.65 Hgb 13.1 Hct 39.7 MCV 85.4 MCH 28.2 MCHC 33.0 RDW 13.7 Plt Count 206 MPV 10.1 Neut % (Auto) 72.8 Lymph % (Auto) 21.3 [place] % (Auto) 5.2 Eos % (Auto) 0.3 Baso % (Auto) 0.4 Neut # (Auto) 8.4 H Lymph # (Auto) 2.4 [place] # (Auto) 0.6 Eos # (Auto) 0.0 Baso # (Auto) 0.0 Sodium 141 Potassium 3.2 L Chloride 103 Carbon Dioxide 24 Anion Gap 17 BUN 8 Creatinine 0.7 Est GFR ( Amer) > 60 Est GFR (Non-Af Amer) > 60 Random Glucose 140 H Calcium 9.2 Assessment & Plan - Assessment and Plan (Free Text) Assessment: 32 yr old F with cholecystitis s/p lap cholecystectomy. No s/s of choledocholithiasis. Can follow with surgery as outpatient. No Gi intervention required. Diet as per surgical service
--- NOTE | 2017-12-16 09:55 | OP ---
PROCEDURE DATE: 12/05/2017 PREOPERATIVE DIAGNOSES: [id number] cholecystitis and lithiasis. POSTOPERATIVE DIAGNOSES: [id number] cholecystitis and lithiasis. OPERATION PERFORMED: Laparoscopic cholecystectomy. SURGEON: Abraham Carmona MD ASSISTANTS: Dr. Rojas, Dr. Hill, and ESTIMATED BLOOD LOSS: Minimal. DESCRIPTION OF PROCEDURE: In the operating room, the patient was identified by name, name of the procedure, laterality, my kerry. The patient was prepped with chlorhexidine followed by 3-minute wait and then draping. After this successful time-out, performed the supraumbilical incision followed by the Visiport, which identified the peritoneum nicely. The xiphoid 5 and two lateral 5s were placed. The fundus and infundibulum, the gallbladder having been decompressed, was pulled up nicely, exposing the cystic duct and artery. The view of safety was clearly seen and we identified and the view of safety having been complete, the cystic duct and then the cystic artery were doubly clipped and divided, the gallbladder taken out in the bag after being taken off the liver bed using the cautery as necessary. It was placed in the bag and removed without issue. The abdomen was explored. There was nothing untoward. It was irrigated and dried. There was no bleeding or bile or injury to any of them at all or intestine. The CO2 was removed. The incision was closed with the 0 Vicryl using needle at the umbilicus. The ports were closed with Vicryl followed by subcuticular PDS and Dermabond having been injected with a total 30 mL of Marcaine to all the different port sites. The patient was taken to the recovery room in good condition after the sponge and counts were declared correct. Abraham Carmona MD
== END 2017-12-06 12:39 | disposition home or self-care (01) ==
LOC: H.ER 23:57 → UNDOADMIN 12-05 04:37 → H.SDS 12-05 04:37 → H.ERHOLD 12-05 04:37 → H.MEDSURG1 12-05 08:52 → H.ERHOLD 12-05 08:52 → UNDODISIN 12-06 12:39 → H.SDS 12-06 12:39
PROVIDERS: ATTEND Emergency Medicine
DX: K80.12 Calculus of gallbladder with acute and chronic cholecystitis without obstruction (principal); E86.0 Dehydration; D72.829 Elevated white blood cell count, unspecified
CPT/HCPCS: 36415; 47562; 76705; 80048; 80053; 81003; 81025; 82803; 83690; 85025; 85610; 85730; 87040; 87086; 88304; 96365; 96375; 99285; J0330; J1100; J2001; J2250; J2270; J2370; J2543; J2704; J2710; J2765; J3010; J7040; J7120